=== PATIENT | male | born 1950 | race Asian ===

== ENCOUNTER 2022-11-06 06:18 | Inpatient (IN) | payer OTHER ==
[2022-11-06 06:34] VITALS: BMI 27.8
[2022-11-06] MEDS ORDERED: ACETAMINOPHEN 1000 MG/100 ML BAG IVPB ONE (06:39)
[2022-11-06] MEDS ORDERED: SODIUM CHLORIDE 0.9% 500 ML INFUS.BAG IV ONE (06:39)
[2022-11-06 07:27] LABS: HEMATOCRIT 41.6 % (35.4-49); HEMOGLOBIN 14.2 GM/dL (11.7-16.9); MCH 30.4 pg (25.7-33.7); MCHC 34.2 g/dl (32.0-35.9); MEAN CELL VOLUME 88.7 fl (80-96); PLATELET COUNT 239 10^3/uL (134-434); RBC 4.69 M/mm3 (4.00-5.60); WHITE BLOOD COUNT 9.2 K/mm3 (4.0-10.0)
[2022-11-06 07:36] LABS: INR 0.97 (0.83-1.09); PROTHROMBIN TIME (PATIENT) 11.1 SEC (9.7-13.0)
[2022-11-06 07:39] LABS: ACTIVATED PTT 39.4 SECONDS (25.2-36.5)
[2022-11-06 07:57] LABS: CALCIUM 9.2 mg/dL (8.5-10.1)
[2022-11-06 07:58] LABS: ALBUMIN 3.7 g/dl (3.4-5.0); BLOOD UREA NITROGEN 21.7 mg/dL (7-18)
[2022-11-06 08:01] LABS: CREATININE 1.1 mg/dL (0.55-1.3)
[2022-11-06 08:03] LABS: BILIRUBIN,TOTAL 0.5 mg/dL (0.2-1); TOT PROT 7.3 g/dl (6.4-8.2)
[2022-11-06 09:14] LABS: N-TERMINAL BNP 31.9 pg/ml (5-125)
[2022-11-06 09:34] LABS: ANISOCYTOSIS 0; MACROCYTOSIS 0
[2022-11-06] MEDS ORDERED: LOSARTAN POTASSIUM 25 MG TABLET PO SCH (10:00)
[2022-11-06] MEDS: ENOXAPARIN NA (PORCINE) 40 MG/0.4 ML DISP.SYRIN SQ SCH (10:16)
[2022-11-06] MEDS ORDERED: ASPIRIN 81 MG CHEWABLE TABLETS ONE ×2 (10:17→10:18)
[2022-11-06] MEDS ORDERED: LOSARTAN POTASSIUM 25 MG TABLET ONE ×2 (10:17→10:18)
[2022-11-06] MEDS: ASPIRIN 81 MG CHEWABLE TABLETS PO SCH (10:21)
[2022-11-06] MEDS: INSULIN SLIDING SCALE (NOVOLOG) 1 VIAL SQ SCH ×2 (12:38→16:29)
[2022-11-06] MEDS ORDERED: LOSARTAN POTASSIUM 25 MG TABLET PO ONE (17:18)
[2022-11-06] MEDS ORDERED: ATORVASTATIN CA 20 MG TABLET (FP) PO SCH (22:00)
[2022-11-07] MEDS: INSULIN SLIDING SCALE (NOVOLOG) 1 VIAL SQ SCH ×3 (06:09→16:43)
[2022-11-07 07:52] LABS: CALCIUM 9.2 mg/dL (8.5-10.1)
[2022-11-07 07:53] LABS: ALBUMIN 3.6 g/dl (3.4-5.0); BLOOD UREA NITROGEN 14.8 mg/dL (7-18)
[2022-11-07 07:56] LABS: CREATININE 0.9 mg/dL (0.55-1.3)
[2022-11-07 07:57] LABS: BILIRUBIN,TOTAL 0.6 mg/dL (0.2-1); TOT PROT 7.1 g/dl (6.4-8.2)
[2022-11-07 08:05] LABS: HEMATOCRIT 43.7 % (35.4-49); HEMOGLOBIN 14.3 GM/dL (11.7-16.9); MCHC 32.7 g/dl (32.0-35.9); MEAN CELL VOLUME 88.8 fl (80-96); MEAN PLT VOLUME 7.8 fl (7.5-11.1); PLATELET COUNT 264 10^3/uL (134-434); RBC 4.93 M/mm3 (4.00-5.60); RDW 13.7 % (11.9-15.9); WHITE BLOOD COUNT 9.4 K/mm3 (4.0-10.0)
[2022-11-07] MEDS: ENOXAPARIN NA (PORCINE) 40 MG/0.4 ML DISP.SYRIN SQ SCH (09:16)
[2022-11-07] MEDS: ASPIRIN 81 MG CHEWABLE TABLETS PO SCH (09:16)
[2022-11-07 09:36] LABS: ANISOCYTOSIS 1+; MACROCYTOSIS 0
[2022-11-07] MEDS ORDERED: LOSARTAN POTASSIUM 50 MG TABLET PO SCH (10:00)
[2022-11-07] MEDS ORDERED: amLODIPine BESYLATE 5 MG TABLET (FP) PO SCH (10:45)
[2022-11-07] MEDS ORDERED: FUROSEMIDE 40 MG/4 ML INJECTABLE VIAL IVPUSH ONE (13:38)
[2022-11-07] MEDS ORDERED: amLODIPine BESYLATE 5 MG TABLET (FP) PO ONE (20:00)
[2022-11-07] MEDS: ATORVASTATIN CA 40 MG TABLET (FP) PO SCH (21:46)
[2022-11-08] MEDS: INSULIN SLIDING SCALE (NOVOLOG) 1 VIAL SQ SCH ×3 (06:25→16:40)
[2022-11-08 07:39] LABS: HEMATOCRIT 43.9 % (35.4-49); HEMOGLOBIN 15.1 GM/dL (11.7-16.9); MCH 30.3 pg (25.7-33.7); MCHC 34.3 g/dl (32.0-35.9); MEAN CELL VOLUME 88.4 fl (80-96); MEAN PLT VOLUME 7.4 fl (7.5-11.1); PLATELET COUNT 286 10^3/uL (134-434); RBC 4.97 M/mm3 (4.00-5.60); RDW 14.1 % (11.9-15.9); WHITE BLOOD COUNT 9.4 K/mm3 (4.0-10.0)
[2022-11-08 07:55] LABS: CALCIUM 9.4 mg/dL (8.5-10.1)
[2022-11-08 07:56] LABS: ALBUMIN 3.8 g/dl (3.4-5.0); BLOOD UREA NITROGEN 22.8 mg/dL (7-18)
[2022-11-08] MEDS: LOSARTAN POTASSIUM 50 MG TABLET PO SCH ×2 (07:58→11:31)
[2022-11-08] MEDS: amLODIPine BESYLATE 10 MG TABLET (FP) PO SCH (07:58)
[2022-11-08 07:59] LABS: CREATININE 1.1 mg/dL (0.55-1.3); PHOSPHOROUS 4.5 mg/dL (2.5-4.9)
[2022-11-08 08:01] LABS: BILIRUBIN,TOTAL 0.6 mg/dL (0.2-1); TOT PROT 7.8 g/dl (6.4-8.2)
[2022-11-08] MEDS: ENOXAPARIN NA (PORCINE) 40 MG/0.4 ML DISP.SYRIN SQ SCH (12:23)
[2022-11-08] MEDS ORDERED: TRIMETHOBENZAMIDE HCL 200MG/2ML INJ IM ONE (15:26)
[2022-11-08] MEDS: ASPIRIN 81 MG CHEWABLE TABLETS PO SCH (16:33)
[2022-11-08] MEDS: hydrALAZINE HCL 25 MG TABLET (FP) PO SCH (22:29)
[2022-11-08] MEDS: ATORVASTATIN CA 40 MG TABLET (FP) PO SCH (22:29)
[2022-11-09] MEDS: INSULIN SLIDING SCALE (NOVOLOG) 1 VIAL SQ SCH ×3 (06:32→17:37)
[2022-11-09 07:28] LABS: MCH 29.4 pg (25.7-33.7); MCHC 33.4 g/dl (32.0-35.9); MEAN PLT VOLUME 7.6 fl (7.5-11.1); PLATELET COUNT 303 10^3/uL (134-434); RBC 5.12 M/mm3 (4.00-5.60); WHITE BLOOD COUNT 11.5 K/mm3 (4.0-10.0)
[2022-11-09 07:45] LABS: CALCIUM 9.4 mg/dL (8.5-10.1)
[2022-11-09 07:46] LABS: MAGNESIUM 2.1 mg/dL (1.8-2.4)
[2022-11-09 07:49] LABS: CREATININE 2.2 mg/dL (0.55-1.3)
[2022-11-09 07:50] LABS: PHOSPHOROUS 5.5 mg/dL (2.5-4.9)
[2022-11-09] MEDS ORDERED: REGADENOSON 0.4 MG/5 ML PRE-FILLED SYRINGE IVPUSH ONE ×2 (10:35→10:45)
[2022-11-09] MEDS: ASPIRIN 81 MG CHEWABLE TABLETS PO SCH (12:13)
[2022-11-09] MEDS: ENOXAPARIN NA (PORCINE) 40 MG/0.4 ML DISP.SYRIN SQ SCH (12:14)
[2022-11-09] MEDS: LOSARTAN POTASSIUM 50 MG TABLET PO SCH (12:14)
[2022-11-09] MEDS: hydrALAZINE HCL 25 MG TABLET (FP) PO SCH ×2 (12:14→21:28)
[2022-11-09] MEDS: amLODIPine BESYLATE 10 MG TABLET (FP) PO SCH (12:14)
[2022-11-09] MEDS ORDERED: SODIUM CHLORIDE 1,000 ML IV SCH ×2 (13:00)
[2022-11-09] MEDS: ATORVASTATIN CA 40 MG TABLET (FP) PO SCH (21:28)
[2022-11-10] MEDS: INSULIN SLIDING SCALE (NOVOLOG) 1 VIAL SQ SCH ×3 (06:17→16:50)
[2022-11-10 08:25] LABS: HEMATOCRIT 42.8 % (35.4-49); HEMOGLOBIN 13.9 GM/dL (11.7-16.9); MCH 29.1 pg (25.7-33.7); MCHC 32.6 g/dl (32.0-35.9); MEAN CELL VOLUME 89.4 fl (80-96); MEAN PLT VOLUME 7.8 fl (7.5-11.1); PLATELET COUNT 276 10^3/uL (134-434); RBC 4.78 M/mm3 (4.00-5.60); RDW 14.3 % (11.9-15.9); WHITE BLOOD COUNT 9.4 K/mm3 (4.0-10.0)
[2022-11-10 08:45] LABS: BLOOD UREA NITROGEN 41.5 mg/dL (7-18); CALCIUM 8.9 mg/dL (8.5-10.1); MAGNESIUM 2.4 mg/dL (1.8-2.4)
[2022-11-10 08:48] LABS: PHOSPHOROUS 4.3 mg/dL (2.5-4.9)
[2022-11-10 08:49] LABS: CREATININE 1.9 mg/dL (0.55-1.3)
[2022-11-10] MEDS: ENOXAPARIN NA (PORCINE) 40 MG/0.4 ML DISP.SYRIN SQ SCH (10:36)
[2022-11-10] MEDS: hydrALAZINE HCL 25 MG TABLET (FP) PO SCH ×2 (10:36→21:28)
[2022-11-10] MEDS: amLODIPine BESYLATE 10 MG TABLET (FP) PO SCH (10:36)
[2022-11-10] MEDS: ASPIRIN 81 MG CHEWABLE TABLETS PO SCH (10:36)
[2022-11-10] MEDS ORDERED: SODIUM CHLORIDE 1,000 ML IV SCH (11:30)
[2022-11-10] MEDS: ATORVASTATIN CA 40 MG TABLET (FP) PO SCH (21:28)
[2022-11-11] MEDS ORDERED: NITROGLYCERIN SUBLINGUAL 1/150 0.4 MG TAB SL ONE ×2 (01:06→01:23)
[2022-11-11] MEDS ORDERED: NITROGLYCERIN SUBLINGUAL 1/150 0.4 MG TAB ONE ×2 (01:07→01:10)
[2022-11-11] MEDS: NITROGLYCERIN SUBLINGUAL 1/150 0.4 MG TAB SL PRN ×2 (02:48→02:52)
[2022-11-11 02:59] LABS: INR 1.08 (0.83-1.09); PROTHROMBIN TIME (PATIENT) 12.4 SEC (9.7-13.0)
[2022-11-11 03:02] LABS: ACTIVATED PTT 36.5 SECONDS (25.2-36.5)
[2022-11-11 03:13] LABS: CHLORIDE 107 mmol/L (98-107); SODIUM 142 mmol/L (136-145)
[2022-11-11 03:14] LABS: CALCIUM 8.7 mg/dL (8.5-10.1)
[2022-11-11 03:15] LABS: ANION GAP 13 MMOL/L (8-16); BLOOD UREA NITROGEN 31.6 mg/dL (7-18); CO2 23 mmol/L (21-32); GLUCOSE,RANDOM 165 mg/dL (74-106)
[2022-11-11 03:18] LABS: CREATININE 1.4 mg/dL (0.55-1.3)
[2022-11-11] MEDS ORDERED: NITROGLYCERIN 25MG/D5W 250ML 25 MG/250 ML ML IVPB SCH (04:15)
[2022-11-11] MEDS ORDERED: MECLIZINE HCL 25 MG TABLET (FP) PO ONE (04:30)
[2022-11-11] MEDS ORDERED: ACETAMINOPHEN 1000 MG/100 ML BAG IVPB ONE (04:30)
[2022-11-11] MEDS ORDERED: HEPARIN NA (PORCINE) 5,000 UNITS/ML 1ML VIAL IVPUSH ONE (04:57)
[2022-11-11] MEDS ORDERED: HEPARIN NA (PORCINE) 5,000 UNITS/ML 1ML VIAL IVPUSH PRN ×2 (04:57)
[2022-11-11] MEDS ORDERED: HEPARIN SOD,PORK IN 0.45% NACL 25,000 UNITS/500 ML INFUS.BAG IVPB SCH (05:00)
[2022-11-11] MEDS: INSULIN SLIDING SCALE (NOVOLOG) 1 VIAL SQ SCH (07:35)
[2022-11-11 08:16] LABS: HEMATOCRIT 38.5 % (35.4-49); HEMOGLOBIN 12.7 GM/dL (11.7-16.9); MCH 29.4 pg (25.7-33.7); MEAN CELL VOLUME 89.3 fl (80-96); MEAN PLT VOLUME 7.6 fl (7.5-11.1); PLATELET COUNT 251 10^3/uL (134-434); RBC 4.31 M/mm3 (4.00-5.60); WHITE BLOOD COUNT 8.9 K/mm3 (4.0-10.0)
[2022-11-11] MEDS ORDERED: CLOPIDOGREL BISULFATE 75 MG TABLET (FP) PO ONE (09:07)
[2022-11-11] MEDS: ASPIRIN 81 MG CHEWABLE TABLETS PO SCH (09:20)
[2022-11-11 09:45] LABS: ALBUMIN 3.5 g/dl (3.4-5.0)
[2022-11-11 09:48] LABS: ALK PHOS 59 U/L (45-117); SGOT/AST 30 U/L (15-37); SGPT/ALT 27 U/L (13-61); TOT PROT 6.7 g/dl (6.4-8.2)
[2022-11-11 09:49] LABS: BILIRUBIN,TOTAL 0.6 mg/dL (0.2-1)
[2022-11-11 09:57] LABS: INR 1.09 (0.83-1.09); PROTHROMBIN TIME (PATIENT) 12.6 SEC (9.7-13.0)
[2022-11-11 10:16] LABS: ACTIVATED PTT 173.7 SECONDS (25.2-36.5)
[2022-11-11 10:41] VITALS: BP 146/62; PULSE 60; RESP 22; TEMP 98.1
[2022-11-11 11:04] LABS: MAGNESIUM 2.5 mg/dL (1.8-2.4)
[2022-11-11 11:06] LABS: BLOOD UREA NITROGEN 30.5 mg/dL (7-18); CALCIUM 9.1 mg/dL (8.5-10.1)
[2022-11-11 11:07] LABS: CREATININE 1.5 mg/dL (0.55-1.3)
[2022-11-11 11:08] LABS: PHOSPHOROUS 3.4 mg/dL (2.5-4.9)
== END 2022-11-11 10:48 | disposition short-term general hospital (02) | DRG 281 ==
LOC: JER 06:18 → JERBED 09:22 → J4W 13:41 → OBSVTOIN 11-08 13:47
PROVIDERS: ADMIT Internal Medicine; ATTEND Internal Medicine
DX: I21.4 Non-ST elevation (NSTEMI) myocardial infarction (principal); N17.9 Acute kidney failure, unspecified; R55 Syncope and collapse; I24.9 Acute ischemic heart disease, unspecified; R07.9 Chest pain, unspecified; I16.0 Hypertensive urgency; R00.1 Bradycardia, unspecified; E11.9 Type 2 diabetes mellitus without complications; E78.5 Hyperlipidemia, unspecified; R09.89 Other specified symptoms and signs involving the circulatory and respiratory systems; R56.9 Unspecified convulsions
CPT/HCPCS: 0241U-QW; 36415; 70450-TC; 70551-TC; 71045-TC-FY; 78452-TC; 80048; 80053; 80061; 82550; 82553; 82962; 83036; 83735; 83880; 84100; 84439; 84443; 84484; 85025; 85027; 85379; 85610; 85730; 86850; 86900; 86901; 93005; 93010; 93017; 93306-TC; 93880-TC; 99285-25; A9502; C9803-CS; G0378; J1644; J2785; U0003; U0005